=== PATIENT | male | born 1985 | race Caucasian/White ===

== ENCOUNTER 2016-08-16 17:09 | Emergency (ER) | payer OTHER ==
[2016-08-16 18:18] LABS: HEMOGLOBIN 16.8 gm/dl (14.0-17.5); RED BLOOD COUNT 5.53 M/UL (4.20-5.50); WHITE BLOOD COUNT 9.9 K/UL (4.5-11.0)
[2016-08-16 18:46] LABS: BUN/CREATININE RATIO 10 (0-10)
== END 2016-08-16 22:47 | disposition home or self-care (01) ==
LOC: ER1 17:09
PROVIDERS: Emergency Medicine
DX: N50.811 Right testicular pain (principal); R00.0 Tachycardia, unspecified; E87.6 Hypokalemia; F17.210 Nicotine dependence, cigarettes, uncomplicated
CPT/HCPCS: 36415; 71010; 76870; 80053; 81001; 82550; 82553; 83874; 83880; 84484; 85025; 85379; 87086; 93005; 96361; 96365; 96375; 99284; J0696; J2405; J7030; J7050

== ENCOUNTER 2021-01-30 12:55 | Emergency (ER) | payer OTHER ==
[~2021-01-30 12:55] MED LIST: NAPROSYN500 MG PO; PREDNISONE20 MG PO; PRILOSEC OTC20 MG PO; ZITHROMAX250 MG PO
== END 2021-01-30 14:12 | disposition home or self-care (01) ==
LOC: ER1 12:55
DX: S05.01XA Injury of conjunctiva and corneal abrasion without foreign body, right eye, initial encounter (principal); Z23 Encounter for immunization; X58.XXXA Exposure to other specified factors, initial encounter
CPT/HCPCS: 90715; 99283

== ENCOUNTER 2021-02-19 23:04 | Emergency (ER) | payer OTHER ==
[2021-02-19] MEDS ORDERED: POLYMYXIN B-TMP10 ML EYERT (23:56)
[2021-02-19] MEDS ORDERED: IBUPROFEN600 MG PO (23:56)
== END 2021-02-20 | disposition home or self-care (01) ==
LOC: ER1 23:04
DX: H10.9 Unspecified conjunctivitis (principal); Z90.49 Acquired absence of other specified parts of digestive tract
CPT/HCPCS: 99283